=== PATIENT | male | born 1960 | race Caucasian/White ===

== ENCOUNTER → 2017-10-08 | Outpatient (CLI) | payer BC ==
[2017-10-08 13:29] VITALS: BP 138/96; PULSE 83; RESP 16; TEMP 98.4; BMI 45.3
--- NOTE | 2017-10-08 17:26 | P.HPBAR ---
Bariatric H&P - History & Physicial H&P Date: 10/08/17 History & Physicial: Visit/CC: Band Adj Patient initial contact: Initial weight: 139.706 kg Initial weight in pounds: 308.00 Height: 5 ft 8 in Initial BMI: 46.8 Last weight: Current weight: 135.171 kg Current weight in pounds: 298.00 Current BMI: 45.3 [place] body weight (based on NIH guidelines): 69.853 kg Excess body weight loss: 6.4% The patient is a 57 year-old M who presents for Bariatric Assessment. Patient presents today for lab band follow. He's had troubles with weight gain. His current BMI is 45. Past Medical History Past Medical History: Hypertension History of Any Multi-Drug Resistant Organisms: None Reported Past Surgical History: Bariatric Surgery, Orthopedic Surgery, Tonsillectomy Additional Past Surgical History / Comment(s): lap band 2012 left knee arthroscopic surgery bilateral feet surgery Past Anesthesia/Blood Transfusion Reactions: No Reported Reaction Smoking Status: Current some day smoker Surgical - Exam Vital Signs Temp Pulse Resp BP 98.4 F 83 16 138/96 10/08/17 13:21 10/08/17 13:21 10/08/17 13:21 10/08/17 13:21 - General well developed, no distress - Eyes PERRL - ENT normal pinna - Neck no masses - Cardiovascular Rhythm: regular - Abdomen Abdomen: soft, non tender Bariatric Assessment & Plan Plan: Patient LAP-BAND was adjusted. He had 1 mL added to his band. He was able to drink water without difficulty. He'll follow-up in one week. Bariatric Checklist Checklist: Plan: Checklist: EGD: 1. Hiatal hernia: 2. H. Pylori: HgbA1c: Vitamin D: Smoking: Current some day smoker Primary care physician referral: Psychiatry clearance: Cardiology clearance: Sleep study: Diet journal: VTE risk score: VTE risk level: Rehab needs at discharge:
== END | disposition home or self-care (01) ==
LOC: BARWHC3 12:25
PROVIDERS: ATTEND Surgery
DX: Z48.815 Encounter for surgical aftercare following surgery on the digestive system (principal); F17.200 Nicotine dependence, unspecified, uncomplicated; E66.01 Morbid (severe) obesity due to excess calories; Z68.42 Body mass index [BMI] 45.0-49.9, adult; Z98.84 Bariatric surgery status
CPT/HCPCS: 97803; 99212

== ENCOUNTER → 2017-12-06 | Outpatient (CLI) | payer BC ==
--- NOTE | 2017-12-06 08:27 | US ---
EXAMINATION TYPE: US abdomen complete DATE OF EXAM: 12/06/2017 COMPARISON: NONE CLINICAL HISTORY: 57-year-old male R10.9 ABD PAIN. Pain in side when he reaches for something. TECHNIQUE: Multiple sonographic images of the abdomen are obtained. Pharmaceutical Officer notes: Difficult and limited exam due to patient body habitus . FINDINGS: EXAM MEASUREMENTS: Liver Length: 17.7 cm Gallbladder Wall: 0.2 cm CBD: 0.5 cm Spleen: 12.1 cm Right Kidney: 11.0 x 5.7 x 5.2 cm Left Kidney: 11.2 x 5.5 x 4.5 cm Pancreas: Only a small portion of the pancreas is visualized and shows no gross abnormal mobility. R emainder is obscured by bowel gas. Liver: Coarse, echogenic, and attenuating measuring upper limits of normal. The increased echogenici ty limits assessment for focal lesion. Gallbladder: wnl Evidence for sonographic Wilder's sign: No CBD: wnl Spleen: Accessory spleen measuring 1.2 x 1.2 x 1.1 cm Right Kidney: No hydronephrosis. Left Kidney: No hydronephrosis. Upper IVC: wnl as visualized, limited due to overlying bowel gas Abd Aorta: wnl as visualized, limited due to overlying bowel gas IMPRESSION: Borderline hepatomegaly (17.7 cm) with moderate to marked hepatic steatosis. Correlate with LFTs, lip id profile, and patient risk factors.
== END | disposition home or self-care (01) ==
LOC: RADUSWWP 07:02
PROVIDERS: ATTEND Family Medicine
DX: K76.0 Fatty (change of) liver, not elsewhere classified (principal)
CPT/HCPCS: 76700

== ENCOUNTER → 2020-10-11 | Outpatient (CLI) | payer BC ==
[2020-10-11 14:27] VITALS: BP 138/90; PULSE 86; TEMP 98; BMI 45.3
--- NOTE | 2020-10-11 14:30 | P.HPBAR ---
Bariatric H&P - History & Physicial H&P Date: 10/11/20 History & Physicial: Visit/CC: lap band follow up Patient initial contact: Initial weight: 139.706 kg Initial weight in pounds: 308.00 Height: 5 ft 8 in Initial BMI: 46.8 Last weight: Current weight: 135.171 kg Current weight in pounds: 298.00 Current BMI: 45.3 [place] body weight (based on NIH guidelines): 69.853 kg Excess body weight loss: 6.4% The patient is a 60 year-old M who presents for Bariatric Assessment. Patient presents today for laparoscopic and follow-up. He's had trouble with dysphagia. His weight has remained unchanged last 2 years. He is unable has been adjusted. He's now developed port site pain he wishes to have the band removed. He wishes convert sleeve gastrectomy Past Medical History Past Medical History: Hypertension History of Any Multi-Drug Resistant Organisms: None Reported Past Surgical History: Bariatric Surgery, Orthopedic Surgery, Tonsillectomy Additional Past Surgical History / Comment(s): lap band 2013 left knee arthroscopic surgery bilateral feet surgery Past Anesthesia/Blood Transfusion Reactions: No Reported Reaction Smoking Status: Former smoker Surgical - Exam Vital Signs Temp Pulse BP 98 F 86 138/90 10/11/20 14:22 10/11/20 14:22 10/11/20 14:22 - General well developed, well nourished, no distress - Eyes PERRL - ENT normal pinna - Neck no masses - Respiratory normal expansion - Cardiovascular Rhythm: regular - Abdomen Mild tenderness at LAP-BAND port. Abdomen: soft Bariatric Assessment & Plan Plan: Morbid obesity. Patient's had significant dysphagia with his LAP-BAND. He does develop port site.. We will attempt to obtain insurance authorization for removal LAP-BAND conversion sleeve gastrectomy. Bariatric Checklist Checklist: Plan: Checklist: EGD: 1. Hiatal hernia: 2. H. Pylori: HgbA1c: Vitamin D: Smoking: Current some day smoker Primary care physician referral: Psychiatry clearance: Cardiology clearance: Sleep study: Diet journal: VTE risk score: VTE risk level: Rehab needs at discharge:
== END | disposition home or self-care (01) ==
LOC: BARWHC3 13:48
PROVIDERS: ATTEND Surgery
DX: E66.01 Morbid (severe) obesity due to excess calories (principal)
CPT/HCPCS: 99211

== ENCOUNTER → 2021-07-25 | Outpatient (CLI) | payer BC | END | disposition home or self-care (01) | LOC: LABPAT 14:36 | PROVIDERS: ATTEND Surgery | DX: Z01.812 Encounter for preprocedural laboratory examination (principal) | CPT/HCPCS: 93005 ==

== ENCOUNTER → 2021-07-25 | Outpatient (CLI) | payer BC ==
[2021-07-25 13:54] VITALS: BP 146/91; PULSE 79; TEMP 97.8; BMI 45.9
--- NOTE | 2021-07-25 15:53 | P.HPBAR ---
Bariatric H&P - History & Physicial H&P Date: 07/25/21 History & Physicial: Visit/CC: lap band Patient initial contact: Initial weight: 139.706 kg Initial weight in pounds: 308.00 Height: 5 ft 8 in Initial BMI: 46.8 Last weight: Current weight: 136.985 kg Current weight in pounds: 302.00 Current BMI: 45.9 [place] body weight (based on NIH guidelines): 69.853 kg Excess body weight loss: 3.8% The patient is a 60 year-old M who presents for Bariatric Assessment. Patient presents today for LAP-BAND follow-up. Requesting a fill. He currently feels hungry. Past Medical History Past Medical History: Hypertension History of Any Multi-Drug Resistant Organisms: None Reported Past Surgical History: Bariatric Surgery, Orthopedic Surgery, Tonsillectomy Additional Past Surgical History / Comment(s): lap band 2013 left knee arthroscopic surgery bilateral feet surgery Past Anesthesia/Blood Transfusion Reactions: No Reported Reaction Past Psychological History: No Psychological Hx Reported Smoking Status: Former smoker Past Alcohol Use History: Heavy Additional Past Alcohol Use History / Comment(s): smokes cigars every three days per patient Past Drug Use History: None Reported Surgical - Exam Vital Signs Temp Pulse BP 97.8 F 79 146/91 07/25/21 13:49 07/25/21 13:49 07/25/21 13:49 - General well developed, well nourished, no distress - Abdomen Abdomen: soft, non tender Bariatric Assessment & Plan Plan: Patient LAP-BAND port has malfunctioned. It was accessed his fluid is not being retained. Patient will be scheduled for laparoscopic replacement of LAP-BAND port. Bariatric Checklist Checklist: Plan: Checklist: EGD: 1. Hiatal hernia: 2. H. Pylori: HgbA1c: Vitamin D: Smoking: Current some day smoker Primary care physician referral: [facility] Psychiatry clearance: Cardiology clearance: Sleep study: Diet journal: VTE risk score: VTE risk level: Rehab needs at discharge:
== END | disposition home or self-care (01) ==
LOC: BARWHC3 13:32
PROVIDERS: ATTEND Surgery
DX: Z48.815 Encounter for surgical aftercare following surgery on the digestive system (principal)
CPT/HCPCS: 97802; 99212

== ENCOUNTER 2021-08-29 06:23 | Day surgery (SDC) | payer BC ==
[2021-08-23 15:11] VITALS: BMI 45.6
[~2021-08-29 06:23] MED LIST: ceFAZolin 3 GM in SODIUM CHLORIDE 0.9% 100 ML IVPB PRN
[2021-08-29] MEDS ORDERED: ONDANSETRON 4 MG/2 ML VIAL IVP ONE (06:35)
[2021-08-29] MEDS ORDERED: MIDAZOLAM 2 MG/2 ML VIAL IV PRN (06:35)
[2021-08-29] MEDS ORDERED: LACTATED RINGERS 1,000 ML IV SCH (06:35)
[2021-08-29] MEDS ORDERED: SCOPOLAMINE 1 MG/72 HR PATCH TRANSDERM ONE (06:35)
[2021-08-29] MEDS ORDERED: DEXAMETHASONE SOD PHOSPHATE 4 MG/ML 1 ML VIAL IV ONE (06:35)
[2021-08-29 06:45] VITALS: TEMP 97.2
[2021-08-29 06:57] LABS: Glucose,Whole Blood 163 mg/dL (70-110)
[2021-08-29] MEDS ORDERED: LACTATED RINGERS 1,000 ML IV ONE (06:58)
[2021-08-29] MEDS ORDERED: HYDROmorphone 0.5 MG/0.5 ML SYRINGE IVP PRN (07:00)
[2021-08-29] MEDS ORDERED: PHENYLEPHRINE-0.9% NACL SYG 1,000 MCG/10 ML SYRINGE ONE (08:00)
[2021-08-29] MEDS ORDERED: fentaNYL (PF) 50 MCG/ML 2 ML AMP ONE (08:00)
[2021-08-29] MEDS ORDERED: SUCCINYLCHOLINE CHLORIDE 100 MG/5 ML SYR IV ONE (08:00)
[2021-08-29] MEDS ORDERED: NEOSTIGMINE 1 MG/ML 10 ML VIAL ONE (08:00)
[2021-08-29] MEDS ORDERED: MIDAZOLAM 2 MG/2 ML VIAL ONE (08:00)
[2021-08-29] MEDS ORDERED: HEPARIN SODIUM,PORCINE 5,000 UNIT/ML 1 ML VIAL SQ ONE (08:00)
[2021-08-29] MEDS ORDERED: PROPOFOL 10 MG/ML 20 ML VIAL IV ONE (08:00)
[2021-08-29] MEDS ORDERED: ROCURONIUM 10 MG/ML (5 ML VIAL) IV ONE (08:00)
[2021-08-29] MEDS ORDERED: GLYCOPYRROLATE 0.2 MG/ML 2 ML VIAL ONE (08:00)
[2021-08-29] MEDS ORDERED: LIDOCAINE 2% INJ 20 MG/ML (2 ML VIAL) ONE (08:00)
[2021-08-29] MEDS ORDERED: BUPIVACAIN-EPI 0.25%-1:200,000 30 ML VIAL SQ ONE ×3 (08:26→08:29)
[2021-08-29] MEDS ORDERED: SODIUM CHLORIDE 0.9% 1,000 ML IV ONE (09:29)
--- NOTE | 2021-08-29 10:00 | P.GSHP ---
History of Present Illness H&P Date: 08/29/21 Chief Complaint: LAP-BAND port malfunction This 61-year-old male who presents today for replacement of LAP-BAND port. Patient has a broken connecting tube. Past Medical History Past Medical History: Diabetes Mellitus, Hypertension History of Any Multi-Drug Resistant Organisms: None Reported Past Surgical History: Bariatric Surgery, Orthopedic Surgery, Tonsillectomy Additional Past Surgical History / Comment(s): lap band 2013, left knee arthroscopic surgery, bilateral feet surgery, EGD, REPAIR RT ACHILLES TENDON., COLONOSCOPY Past Anesthesia/Blood Transfusion Reactions: No Reported Reaction Smoking Status: Current every day smoker - Past Family History Mother Family Medical History: Cancer Father Family Medical History: Cancer Medications and Allergies Home Medications Medication Instructions Recorded Confirmed Type Cholecalciferol (Vitamin D3) 5,000 unit PO DAILY 10/12/20 08/23/21 History [Vitamin D3 (3000 Iu)] Cinnamon Bark [Cinnamon] 500 mg PO DAILY 10/12/20 08/23/21 History amLODIPine BESYLATE/BENAZEPRIL 1 tab PO DAILY 10/12/20 08/23/21 History [amLODIPine BESYLATE/BENAZEPRIL 10-40 MG] metFORMIN HCL [Glucophage] 1,000 mg PO DAILY 10/12/20 08/23/21 History Acetaminophen Tab [Tylenol] 650 mg PO Q6H #30 tab 08/29/21 Rx Docusate [Colace] 100 mg PO BID #20 capsule 08/29/21 Rx Ibuprofen [Motrin] 600 mg PO Q6HR PRN #40 tab 08/29/21 Rx oxyCODONE HCL [OxyIR] 5 mg PO Q6H PRN 3 Days #10 tab 08/29/21 Rx Allergies Allergy/AdvReac Type Severity Reaction Status Date / Time No Known Allergies Allergy Verified 08/23/21 14:54 Surgical - Exam Vital Signs Temp Pulse Resp BP Pulse Ox 97.2 F L 78 18 152/76 97 08/29/21 06:44 08/29/21 06:44 08/29/21 06:44 08/29/21 06:44 08/29/21 06:44 - General well developed, well nourished, no distress - Eyes PERRL - ENT normal pinna - Neck no masses - Respiratory normal expansion - Cardiovascular Rhythm: regular - Abdomen Abdomen: soft, non tender Results - Labs Abnormal Lab Results - Last 24 Hours (Table) 08/29/21 Range/Units 06:55 POC Glucose (mg/dL) 163 H (70-110) mg/dL Assessment and Plan Assessment: LAP-BAND port mild function. We'll perform replacement of LAP-BAND port.
--- NOTE | 2021-08-29 10:04 | P.OP ---
Date of Procedure: 08/29/21 Preoperative Diagnosis: LAP-BAND port malfunction Postoperative Diagnosis: LAP-BAND port malfunction Procedure(s) Performed: Open removal of LAP-BAND port Laparoscopic replacement of LAP-BAND port Anesthesia: YOSVANY Surgeon: Fredy Scott Estimated Blood Loss (ml): 5 Pathology: none sent Condition: stable Disposition: PACU Description of Procedure: Patient's placed the operative table in supine position. He received general endotracheal tube anesthesia. His abdomen was prepped and draped usual fashion. The incision incision sites were not injected with 1% local Xylocaine. The skin was incised LAP-BAND port his left cautery the LAP-BAND port was dissected free. The LAP-BAND port PEG tube was broken. The port was disconnected from the LAP-BAND tubing. The port was then withdrawn. There is no way to bring the PEG tube up into the wound. This point a 5 mm trocar was placed into the. Cavity under direct vision. The abdomen was insufflated. Next another 5 mm trochars placed in the right upper quadrant. And then another 5 mm trochars placed in the left midabdomen position. The Tube was visualized. The PEG tube was then brought up into the right upper quadrant trocar site. The trochars withdrawn. The skin was incised at the trocar site to make enough room for the port. The subcutaneous tissue divided. The port was secured to the fascia using 0 Nurolon suture after it had been connected to the PEG tube. The port was flushed with saline. 1.5 mL of saline was placed to the LAP-BAND port. The trochars withdrawn. The skin incision sites were closed with 3-0 Monocryl. Dermabond was applied. Patient top she will was sent to recovery room in stable condition.
[2021-08-29 10:18] VITALS: RESP 20
[2021-08-29 11:30] VITALS: BP 150/71; PULSE 95
== END 2021-08-29 11:42 | disposition home or self-care (01) ==
LOC: OR 06:23
PROVIDERS: ATTEND Surgery
DX: T85.698A Other mechanical complication of other specified internal prosthetic devices, implants and grafts, initial encounter (principal); Y83.8 Other surgical procedures as the cause of abnormal reaction of the patient, or of later complication, without mention of misadventure at the time of the procedure; E11.9 Type 2 diabetes mellitus without complications; I10 Essential (primary) hypertension; Z98.84 Bariatric surgery status; Z80.9 Family history of malignant neoplasm, unspecified; Z79.84 Long term (current) use of oral hypoglycemic drugs; G47.33 Obstructive sleep apnea (adult) (pediatric); F17.200 Nicotine dependence, unspecified, uncomplicated
CPT/HCPCS: 43659; C1751; J2250; J1644; J1100; J2710; J0690; J2405; J3010; J2370; J0330; J2704; J2001

== ENCOUNTER 2021-09-09 08:09 | Day surgery (SDC) | payer BC ==
[2021-09-08 10:41] VITALS: BMI 43.4
[~2021-09-09 08:09] MED LIST changes: +LACTATED RINGERS 1,000 ML IV SCH; +LIDOCAINE 1% (10MG/ML) FOR IV START INTRADERMA PRN; -ceFAZolin 3 GM in SODIUM CHLORIDE 0.9% 100 ML IVPB PRN
[2021-09-09 08:44] VITALS: TEMP 97.2
[2021-09-09 08:51] LABS: Glucose,Whole Blood 109 mg/dL (70-110)
[2021-09-09] MEDS ORDERED: PROPOFOL 10 MG/ML 20 ML VIAL IV ONE (09:17)
[2021-09-09] MEDS ORDERED: LIDOCAINE 2% INJ 20 MG/ML (2 ML VIAL) ONE (09:17)
--- NOTE | 2021-09-09 09:39 | P.PCN ---
Date of Procedure: 09/09/21 Procedure(s) Performed: BRIEF HISTORY: Patient is a 61-year-old pleasant white male scheduled for an elective colonoscopy as a part of screening for colorectal neoplasia. PROCEDURE PERFORMED: Colonoscopy with biopsy . PREOPERATIVE DIAGNOSIS: Screening for colon cancer. IV sedation per Anesthesia. PROCEDURE: After informed consent was obtained, the patient, was brought into the endoscopy unit. IV sedation was administered by Anesthesia under continuous monitoring. Digital rectal examination was normal. Initially the Olympus CF-160 flexible video colonoscope was then inserted in the rectum, gradually advanced into the cecum without any difficulty. Careful examination was performed as the scope was gradually being withdrawn. Ileocecal valve and the appendiceal orifice were visualized and appeared normal. Prep was excellent. In the base of the cecum there was a 5 mm polyp that was removed by cold biopsy. Mucosa of the cecum, ascending colon, transverse colon, descending colon, sigmoid colon, and rectum appeared normal. Retroflexion was performed in the rectum and no lesions were seen. The patient tolerated the procedure well. IMPRESSION: 5 mm cecal polyp status post cold biopsy Rest of the colon appeared normal RECOMMENDATIONS: Findings of this examination were discussed with the patient as his family.. He was advised to follow with the biopsy results. If the biopsy results adenoma he can have a repeat colon in 5 years
[2021-09-09 09:49] VITALS: RESP 18
[2021-09-09 10:19] VITALS: BP 118/81; PULSE 54
== END 2021-09-09 10:28 | disposition home or self-care (01) ==
LOC: ORWHC2ENDO 08:09
PROVIDERS: ATTEND Internal Medicine Gastroenterology
DX: Z12.11 Encounter for screening for malignant neoplasm of colon (principal); K63.5 Polyp of colon; Z79.84 Long term (current) use of oral hypoglycemic drugs; Z79.899 Other long term (current) drug therapy; I10 Essential (primary) hypertension; G47.33 Obstructive sleep apnea (adult) (pediatric); F17.200 Nicotine dependence, unspecified, uncomplicated; E11.9 Type 2 diabetes mellitus without complications; Z79.891 Long term (current) use of opiate analgesic
CPT/HCPCS: 88305; 45380; J2704; J2001

== ENCOUNTER → 2021-09-12 | Outpatient (CLI) | payer BC ==
[2021-09-12 13:21] VITALS: BP 121/84; PULSE 69; TEMP 97.6; BMI 43.6
--- NOTE | 2021-09-13 16:18 | P.HPBAR ---
Bariatric H&P - History & Physicial H&P Date: 09/12/21 History & Physicial: Visit/CC: lap band f/u Patient initial contact: Initial weight: 139.706 kg Initial weight in pounds: 308.00 Height: 5 ft 8 in Initial BMI: 46.8 Last weight: Current weight: 130.181 kg Current weight in pounds: 287.00 Current BMI: 43.6 [place] body weight (based on NIH guidelines): 69.853 kg Excess body weight loss: 13.6% The patient is a 61 year-old M who presents for Bariatric Assessment. Patient resents today for bariatric follow-up. He's had some minimal GERD. Patient recent port replacement. He has no other complaints. Past Medical History Past Medical History: Diabetes Mellitus, Hypertension, Sleep Apnea/CPAP/BIPAP Additional Past Medical History / Comment(s): uses CPAP History of Any Multi-Drug Resistant Organisms: None Reported Past Surgical History: Bariatric Surgery, Orthopedic Surgery, Tonsillectomy Additional Past Surgical History / Comment(s): lap band 2012/surgery for new lap band 08/29/21, left knee arthroscopic surgery, bilateral foot surgery, surgery for torn tendon rt leg Past Anesthesia/Blood Transfusion Reactions: Previous Problems w/ Anesthesia Additional Past Anesthesia/Blood Transfusion Reaction / Comm: anesthesia with colonoscopy- could not get scope due "clenched rectum" Past Psychological History: No Psychological Hx Reported Smoking Status: Current some day smoker Past Alcohol Use History: Occasional Additional Past Alcohol Use History / Comment(s): smokes cigars occ. Past Drug Use History: None Reported - Past Family History Mother Family Medical History: Cancer Father Family Medical History: Cancer Surgical - Exam Vital Signs Temp Pulse BP 97.6 F 69 121/84 09/12/21 13:16 09/12/21 13:16 09/12/21 13:16 - General well developed, well nourished, no distress - Eyes PERRL - ENT normal pinna - Neck no masses - Respiratory normal expansion - Cardiovascular Rhythm: regular - Abdomen Abdomen: soft, non tender Bariatric Assessment & Plan Plan: Morbid obesity, BMI 44. His GERD is minimal and will be observed. Patient will follow-up in 4 weeks. Bariatric Checklist Checklist: Plan: Checklist: EGD: 1. Hiatal hernia: 2. H. Pylori: HgbA1c: Vitamin D: Smoking: Current some day smoker Primary care physician referral: [facility] Psychiatry clearance: Cardiology clearance: Sleep study: Diet journal: VTE risk score: VTE risk level: Rehab needs at discharge:
== END | disposition home or self-care (01) ==
LOC: BARWHC3 13:05
PROVIDERS: ATTEND Surgery
DX: E66.01 Morbid (severe) obesity due to excess calories (principal); K21.9 Gastro-esophageal reflux disease without esophagitis; Z68.41 Body mass index [BMI] 40.0-44.9, adult; E11.9 Type 2 diabetes mellitus without complications; I10 Essential (primary) hypertension; Z98.84 Bariatric surgery status; F17.200 Nicotine dependence, unspecified, uncomplicated
CPT/HCPCS: 99212

== ENCOUNTER → 2021-10-17 | Outpatient (CLI) | payer BC ==
[2021-10-18 10:50] VITALS: BP 114/68; PULSE 85; TEMP 98.2; BMI 43.7
--- NOTE | 2021-10-31 15:11 | P.HPBAR ---
Bariatric H&P - History & Physicial H&P Date: 10/17/21 History & Physicial: Visit/CC: lap band follow up Patient initial contact: Initial weight: 139.706 kg Initial weight in pounds: 308.00 Height: 5 ft 8 in Initial BMI: 46.8 Last weight: Current weight: 130.635 kg Current weight in pounds: 288.00 Current BMI: 43.7 [place] body weight (based on NIH guidelines): 69.853 kg Excess body weight loss: 12.9% The patient is a 61 year-old M who presents for Bariatric Assessment. Patient resents today for LAP-BAND follow-up. Prescription fill of his band. He currently feels hungry. Past Medical History Past Medical History: Diabetes Mellitus, Hypertension, Sleep Apnea/CPAP/BIPAP Additional Past Medical History / Comment(s): uses CPAP History of Any Multi-Drug Resistant Organisms: None Reported Past Surgical History: Bariatric Surgery, Orthopedic Surgery, Tonsillectomy Additional Past Surgical History / Comment(s): lap band 2013/surgery for new lap band 08/29/21, left knee arthroscopic surgery, bilateral foot surgery, surgery for torn tendon rt leg Past Anesthesia/Blood Transfusion Reactions: Previous Problems w/ Anesthesia Additional Past Anesthesia/Blood Transfusion Reaction / Comm: anesthesia with colonoscopy- could not get scope due "clenched rectum" Past Psychological History: No Psychological Hx Reported Smoking Status: Current some day smoker Past Alcohol Use History: Occasional Additional Past Alcohol Use History / Comment(s): smokes cigars occ. Past Drug Use History: None Reported - Past Family History Mother Family Medical History: Cancer Father Family Medical History: Cancer Surgical - Exam Vital Signs Temp Pulse BP 98.2 F 85 114/68 10/17/21 13:15 10/17/21 13:15 10/17/21 13:15 - General well developed, well nourished, no distress - Eyes PERRL - ENT normal pinna - Neck no masses - Respiratory normal expansion - Cardiovascular Rhythm: regular - Abdomen Abdomen: soft, non tender Bariatric Assessment & Plan Plan: Patient's LAP-BAND was just. 1 mL added to the band. Currently has 4 mL in the band. He will follow-up in 4 weeks. Bariatric Checklist Checklist: Plan: Checklist: EGD: 1. Hiatal hernia: 2. H. Pylori: HgbA1c: Vitamin D: Smoking: Current some day smoker Primary care physician referral: [facility] Psychiatry clearance: Cardiology clearance: Sleep study: Diet journal: VTE risk score: VTE risk level: Rehab needs at discharge:
== END | disposition home or self-care (01) ==
LOC: BARWHC3 13:15
PROVIDERS: ATTEND Surgery
DX: Z48.815 Encounter for surgical aftercare following surgery on the digestive system (principal)
CPT/HCPCS: 99212

== ENCOUNTER → 2023-06-25 | Outpatient (CLI) | payer BC ==
[2023-06-25 10:33] VITALS: BP 131/80; PULSE 73; RESP 14; TEMP 97.9; BMI 44.2
--- NOTE | 2023-06-26 11:57 | P.HPBAR ---
Bariatric H&P - History & Physicial H&P Date: 06/25/23 History & Physicial: Visit/CC: requesting lap band fill Patient initial contact: Initial weight: 139.706 kg Initial weight in pounds: 308.00 Height: 5 ft 8 in Initial BMI: 46.8 Last weight: Current weight: 131.995 kg Current weight in pounds: 291.00 Current BMI: 44.2 [place] body weight (based on NIH guidelines): 69.853 kg Excess body weight loss: 11.0% The patient is a 62 year-old M who presents for Bariatric Assessment.patient is requesting a fill of his band. He currently feels hungry. Past Medical History Past Medical History: Diabetes Mellitus, Hypertension, Sleep Apnea/CPAP/BIPAP Additional Past Medical History / Comment(s): uses CPAP History of Any Multi-Drug Resistant Organisms: None Reported Past Surgical History: Bariatric Surgery, Orthopedic Surgery, Tonsillectomy Additional Past Surgical History / Comment(s): lap band 2013/surgery for new lap band 08/29/21, left knee arthroscopic surgery, bilateral foot surgery, surgery for torn tendon rt leg Past Anesthesia/Blood Transfusion Reactions: Previous Problems w/ Anesthesia Additional Past Anesthesia/Blood Transfusion Reaction / Comm: anesthesia with colonoscopy- could not get scope due "clenched rectum" Past Psychological History: No Psychological Hx Reported Smoking Status: Current some day smoker Past Alcohol Use History: Occasional Additional Past Alcohol Use History / Comment(s): smokes cigars occ. Past Drug Use History: None Reported - Past Family History Mother Family Medical History: Cancer Father Family Medical History: Cancer Surgical - Exam Vital Signs Temp Pulse Resp BP 97.9 F 73 14 131/80 06/25/23 10:04 06/25/23 10:04 06/25/23 10:04 06/25/23 10:04 - General well developed, well nourished, no distress - Eyes PERRL - ENT normal pinna - Neck no masses - Respiratory normal expansion - Cardiovascular Rhythm: regular - Abdomen Abdomen: soft, non tender Bariatric Assessment & Plan Plan: patient's LAP-BAND was adjusted. 1 mL added to the band. He'll follow-up in 4 weeks. Bariatric Checklist Checklist: Plan: Checklist: EGD: 1. Hiatal hernia: 2. H. Pylori: HgbA1c: Vitamin D: Smoking: Current some day smoker Primary care physician referral: [facility] Psychiatry clearance: Cardiology clearance: Sleep study: Diet journal: VTE risk score: VTE risk level: Rehab needs at discharge:
== END ==
LOC: BARWHC3 09:17
PROVIDERS: ATTEND Surgery
DX: Z46.51 Encounter for fitting and adjustment of gastric lap band (principal); F17.200 Nicotine dependence, unspecified, uncomplicated; Z98.84 Bariatric surgery status; Z90.3 Acquired absence of stomach [part of]
CPT/HCPCS: 43999